=== PATIENT | male | born 1985 | race Caucasian/White ===

== ENCOUNTER 2016-11-08 05:08 | Emergency (ER) | payer SELFPAY | END 2016-11-08 07:35 | disposition home or self-care (01) | LOC: ER1 05:08 | DX: K02.9 Dental caries, unspecified (principal) | CPT/HCPCS: 99282 ==

== ENCOUNTER 2016-11-30 23:45 | Emergency (ER) | payer SELFPAY | END 2016-12-01 02:13 | disposition home or self-care (01) | LOC: ER1 23:45 | DX: L23.9 Allergic contact dermatitis, unspecified cause (principal); E66.01 Morbid (severe) obesity due to excess calories | CPT/HCPCS: 96372; 99282; J1100; Q0163 ==